=== PATIENT | male | born 1965 | race Caucasian/White ===

== ENCOUNTER 2018-09-23 14:37 | Emergency (ER) | payer OTHER ==
--- NOTE | 2018-09-23 14:59 | ED ---
GI/ HPI - HPI Summary HPI Summary: The patient is a 53 y/o M presenting to [facility] accompanied by significant other with a chief complaint of gradual onset left flank pain for the last 3 weeks with worsening today as the pain radiates to the back. He additionally states that he has been experiencing dark urine, but he denies dysuria, hematuria, testicular pain, fevers, chills, nausea, diarrhea, or constipation. The dull pain is currently rated 2/10 in severity. Notes he had shingles in the left abdominal and back area about a month ago. PMHx: shingles. No FHx of kidney stones. Current every day smoker, occasional EtOH, no substance use. Medications reviewed. Allergies reviewed. - History of Current Complaint Chief Complaint: EDFlankPain Time Seen by Provider: 09/23/18 14:42 Stated Complaint: POSS KIDNEY STONE Hx Obtained From: Patient Onset/Duration: Started Days Ago, Still Present Timing: Lasting Days Severity: Moderate Current Severity: Mild Pain Intensity: 2 Location of Pain: Flank - left Pain Characteristics: Dull Pain Radiates to: Back - left Associated Signs and Symptoms: Positive: Back Pain - radiating from left flank, Flank Pain - left, Other: - POSITIVE: dark urine; NEGATIVE: testicular pain, chills. Negative: Constipation, Diarrhea, Fever, Hematuria, Dysuria Aggravating Factor(s): Nothing Alleviating Factor(s): Nothing - Allergy/Home Medications Allergies/Adverse Reactions: Allergies Allergy/AdvReac Type Severity Reaction Status Date / Time No Known Allergies Allergy Verified 09/23/18 14:40 Home Medications: Home Medications ZyrTEC 10 MG TAB* 10 mg PO DAILY 09/23/18 [History Confirmed 09/23/18] PMH/Surg Hx/FS Hx/Imm Hx Endocrine/Hematology History: Denies: Hx Diabetes Cardiovascular History: Denies: Hx Hypertension Sensory History: Reports: Hx Contacts or Glasses Denies: Hx Deafness Opthamlomology History: Reports: Hx Contacts or Glasses EENT History: Denies: Hx Deafness - Surgical History Surgical History: None Surgery Procedure, Year, and Place: none Infectious Disease History: Yes Infectious Disease History: Reports: Hx Shingles Denies: Traveled Outside the [place] in Last 30 Days - Family History Known Family History: Negative: Renal Disease - Social History Alcohol Use: Occasionally Hx Substance Use: No Hx Tobacco Use: Yes Smoking Status (MU): Current Every Day Smoker Review of Systems Negative: Fever, Chills Positive: Other - NEGATIVE: constipation. Negative: Diarrhea, Nausea Positive: flank pain - right, radiates to right back, other - POSITIVE: dark urine; NEGATIVE: pain in testicles. Negative: dysuria, hematuria All Other Systems Reviewed And Are Negative: Yes Physical Exam - Summary Physical Exam Summary: Constitutional: Well-developed, Well-nourished, Alert. (-) Distressed Skin: Warm, Dry, No vesicular rash HENT: Normocephalic; Atraumatic Eyes: Conjunctiva normal Neck: Musculoskeletal ROM normal neck. (-) JVD, (-) Stridor, (-) Tracheal deviation Cardio: Rhythm regular, rate normal, Heart sounds normal; Intact distal pulses; The pedal pulses are 2+ and symmetric. Radial pulses are 2+ and symmetric. (-) Murmur Pulmonary/Chest wall: Effort normal. (-) Respiratory distress, (-) Wheezes, (-) Rales Abd: Soft, (-) tenderness, (-) Distension, (-) Guarding, (-) Rebound Musculoskeletal: No CVA tenderness. (-) Edema Lymph: (-) Cervical adenopathy Neuro: Alert, Oriented x3 Psych: Mood and affect Normal Triage Information Reviewed: Yes Vital Signs On Initial Exam: Initial Vitals Temp Pulse Resp BP Pulse Ox 98.2 F 56 18 125/68 98 09/23/18 14:39 09/23/18 14:39 09/23/18 14:39 09/23/18 14:39 09/23/18 14:39 Vital Signs Reviewed: Yes Diagnostics - Vital Signs Vital Signs Temp Pulse Resp BP Pulse Ox 09/23/18 14:39 98.2 F 56 18 125/68 98 - Laboratory Result Diagrams: 09/23/18 15:02 09/23/18 15:02 Lab Statement: Any lab studies that have been ordered have been reviewed, and results considered in the medical decision making process. - CT Abd/Pel CT CT Interpretation Completed By: Radiologist Summary of CT Findings: Impression: 1. No evidence for acute finding. 2. Enlarged prostate gland. ED physician has reviewed this report. Re-Evaluation - Re-Evaluation First Eval Re-Evaluation Time: 16:00 Comment: We discussed results and discharge home. GIGU Course/Dx - Course Course Of Treatment: Patient is here with left-sided flank pain and dark colored urine over the past couple of days. Patient had no blood in his urine. Patient negative CT for AAA or nephrolithiasis. Patient's CK was slightly elevated which could be causing his dark urine with it being found tenderness today. Patient had no abdominal pain or other symptoms is overall well- appearing. Patient is encouraged to drink a lot of water over the next couple of days and is given very strict return precautions. Patient did have shingles last month with no lesions today. This could represent postherpetic neuralgia as well. - Diagnoses Provider Diagnoses: Left flank pain, Dark urine, Elevated CK Discharge - Sign-Out/Discharge Documenting (check all that apply): Patient Departure - Patient will be discharged home. Patient Received Moderate/Deep Sedation with Procedure: No - Discharge Plan Condition: Stable Disposition: HOME Patient Education Materials: Flank Pain (ED) Referrals: [facility] [Outside] - 3 Days Additional Instructions: Drink plenty of water. Avoid using Ibuprofen for the next week. Return to the emergency department for any darkening of the urine, ability to urinate, blood in stool, or fever. Follow up with your primary care provider in 2-3 days. - Billing Disposition and Condition Condition: STABLE Disposition: Home - Attestation Statements Document Initiated by Oneyda: Yes Documenting Scribe: Tete Sarah Provider For Whom Oneyda is Documenting (Include Credential): Dr. Blu Caldwell MD Scribe Attestation: Tete Reyes scribed for Dr. Blu Caldwell MD on 09/23/18 at 1635. Scribe Documentation Reviewed: Yes Provider Attestation: The documentation as recorded by the Tete hernandez accurately reflects the service I personally performed and the decisions made by me, Dr. Blu Caldwell MD Status of Oneyda Document: Viewed
[2018-09-23] MEDS ORDERED: NS 0.9% 1000 ML** 1,000 ML IV ONE (15:00)
[2018-09-23 15:10] LABS: ABS Eosinophils 0.1 10^3/ul (0-0.6); ABS Lymphocytes 1.9 10^3/ul (1.0-4.8); ABS Monocytes 0.6 10^3/ul (0-0.8); ABS Neutrophils 5.1 10^3/ul (1.5-7.7); Eosinophil % 1.8 %; Hematocrit 41 % (42-52); Hemoglobin 13.9 g/dL (14.0-18.0); Lymphocyte % 24.8 %; Mean Corpuscular HGB Conc 34 g/dL (31-36); Mean Corpuscular Hemoglobin 31 pg (27-31); Mean Corpuscular Volume 91 fL (80-94); Mean Platelet Volume 7.5 fL (7.4-10.4); Nucleated Red Blood Cells % 0.1; Platelet Count 237 10^3/uL (150-450); Red Blood Count 4.45 10^6 /uL (4.18-5.48); Red Cell Distribution Width 14 % (10-15); White Blood Count 7.8 10^3/uL (3.5-10.8)
[2018-09-23 15:26] LABS: Albumin 4.5 g/dL (3.2-5.2); Albumin/Globulin Ratio 1.8 (1-3); BUN/Creatinine Ratio 13.7 (8-20); Calcium 9.7 mg/dL (8.6-10.3); EGFR African American 73.8 (>60); Globulin 2.5 g/dL (2-4); Potassium 4.1 mmol/L (3.5-5.0); Total Bilirubin 0.6 mg/dL (0.2-1.0)
[2018-09-23 15:31] LABS: Urine Appearance Cloudy; Urine Bilirubin Negative (Negative); Urine Blood Negative (Negative); Urine Color Amber; Urine Glucose Negative (Negative); Urine Ketones Trace (Negative); Urine Nitrite Negative (Negative); Urine Protein Negative (Negative); Urine Specific Gravity 1.023 (1.010-1.030); Urine Urobilinogen Negative (Negative)
[2018-09-23 16:50] VITALS: BP 115/66
== END 2018-09-23 16:49 | disposition home or self-care (01) ==
LOC: ED 14:37
DX: R10.32 Left lower quadrant pain (principal); R82.90 Unspecified abnormal findings in urine; R74.8 Abnormal levels of other serum enzymes; F17.210 Nicotine dependence, cigarettes, uncomplicated; Z79.899 Other long term (current) drug therapy; N40.0 Benign prostatic hyperplasia without lower urinary tract symptoms
CPT/HCPCS: 36415; 74176; 80053; 81003; 82550; 85025; 96360; 99282